=== PATIENT | male | born 1960 | race Caucasian/White ===

== ENCOUNTER 2020-07-12 14:03 | Emergency (ER) | payer OTHER ==
[~2020-07-12] VITALS: Ht 177.8 cm; Wt 115.2 kg
[2020-07-12 14:16] VITALS: Ht 177.8 cm; Wt 115.2 kg
[2020-07-12 16:20] VITALS: BP 156/82
== END 2020-07-12 16:20 | disposition home or self-care (01) ==
LOC: ED 14:03
DX: S01.81XA Laceration without foreign body of other part of head, initial encounter (principal); W20.8XXA Other cause of strike by thrown, projected or falling object, initial encounter; Y93.89 Activity, other specified; Y92.89 Other specified places as the place of occurrence of the external cause; Y99.8 Other external cause status
CPT/HCPCS: 90715; J2001

== ENCOUNTER 2020-07-16 10:48 | Emergency (ER) | payer OTHER ==
[~2020-07-16] VITALS: Ht 177.8 cm; Wt 113.4 kg
[2020-07-16 10:54] VITALS: BP 187/85; Ht 177.8 cm; Wt 113.4 kg
== END 2020-07-16 13:34 | disposition home or self-care (01) ==
LOC: ED 10:48
DX: S01.81XD Laceration without foreign body of other part of head, subsequent encounter (principal); E11.9 Type 2 diabetes mellitus without complications; I10 Essential (primary) hypertension; X58.XXXD Exposure to other specified factors, subsequent encounter

== ENCOUNTER 2020-07-20 09:52 | Emergency (ER) | payer OTHER ==
[~2020-07-20] VITALS: Ht 177.8 cm; Wt 113.4 kg
[2020-07-20 10:43] VITALS: Ht 177.8 cm; Wt 113.4 kg
[2020-07-20 12:25] VITALS: BP 135/70
== END 2020-07-20 12:25 | disposition home or self-care (01) ==
LOC: ED 09:52
DX: S01.81XD Laceration without foreign body of other part of head, subsequent encounter (principal); I10 Essential (primary) hypertension; E11.9 Type 2 diabetes mellitus without complications; X58.XXXD Exposure to other specified factors, subsequent encounter